=== PATIENT | female | born 1955 | race Caucasian/White ===

== ENCOUNTER 2024-04-04 17:55 | Inpatient (IN) | payer MEDICARE, MEDICAID ==
[~2024-04-04] VITALS: Ht 162.6 cm; Wt 82.1 kg
[2024-04-04 17:45] VITALS: BP 117/66; PULSE 85; RESP 18; TEMP 36.4; O2SAT 99
[~2024-04-04 17:55] MED LIST: ASPIRIN PO; BENA40TA91 PO; GABA800T97 PO; GLIP10TA17 PO; METF500T PO; PIOG45TA62 PO; SIMVASTATIN PO
[2024-04-04] MEDS ORDERED: IPRATROPIUM/ALBUTEROL 0.5-3(2.5)MG/3ML NEB NEB NR (18:26)
[2024-04-04 20:10] VITALS: BP 125/63; PULSE 114; RESP 18; TEMP 36.4; O2SAT 98
[2024-04-04] MEDS ORDERED: INSULIN LISPRO 100 UNITS/ML SUBCUT SCH (21:00)
[2024-04-04] MEDS: BLOOD SUGAR DIAGNOSTIC STRIP TEST SCH (21:00)
[2024-04-04] MEDS ORDERED: DEXTROSE 50% WATER 50ML SYRINGE IV PRN (21:15)
[2024-04-04] MEDS: GABAPENTIN 300MG CAPSULE PO SCH (21:56)
[2024-04-04] MEDS: FAMOTIDINE 20MG TABLET PO SCH (21:56)
[2024-04-04] MEDS: CARVEDILOL 3.125 MG TABLET PO SCH (21:59)
[2024-04-04] MEDS: DOXYCYCLINE 100MG/100ML 100 ML IV SCH (22:01)
[2024-04-04] MEDS: ATORVASTATIN CALCIUM 20MG TABLET PO SCH (22:02)
[2024-04-04] MEDS: INSULIN LISPRO 100 UNITS/ML SUBCUT SCH (22:26)
[2024-04-05] VITALS (8 sets, daily range): BP systolic 104–117; BP diastolic 46–71; PULSE 70–106; RESP 16–18; TEMP 35.4–36.5; O2SAT 94–97
[2024-04-05] MEDS: IPRATROPIUM/ALBUTEROL 0.5-3(2.5)MG/3ML NEB NEB SCH (05:03)
[2024-04-05] MEDS: BLOOD SUGAR DIAGNOSTIC STRIP TEST SCH (07:45)
[2024-04-05] MEDS: LORATADINE 10MG TABLET PO SCH (08:15)
[2024-04-05] MEDS: LOSARTAN 25 MG TABLET PO SCH (08:15)
[2024-04-05] MEDS: SERTRALINE HCL 25MG TABLET PO SCH (08:16)
[2024-04-05] MEDS: ENOXAPARIN 40MG/0.4ML SYR SUBCUT SCH (08:16)
[2024-04-05] MEDS: ASPIRIN 81MG TABLET PO SCH (08:16)
[2024-04-05] MEDS: PREDNISONE 20MG TABLET PO SCH (08:16)
[2024-04-05] MEDS: FUROSEMIDE 40MG/4ML VIAL IVP SCH (08:17)
[2024-04-05] MEDS: METHYLPREDNISOLONE SOD SUCC 40MG/ML (ACT-O-VIAL) IV SCH (08:17)
[2024-04-05] MEDS: NYSTATIN POWDER 15GM TOP SCH (09:00)
[2024-04-05] MEDS: CEFTRIAXONE 1GM/50ML 50 ML IV SCH (11:33)
[2024-04-05] MEDS: MONTELUKAST SODIUM 10MG TABLET PO SCH (17:09)
[2024-04-05 22:43] LABS: HEMOGLOBIN. 11.1 g/dL (12.0-16.0); LYMPHOCYTES % 14.4 % (20.0-50.0); MEAN CORPUSCULAR HEMOGLOBIN 29.1 pg (28.0-32.0); MEAN CORPUSCULAR HGB CONC 32.6 g/dL (31.0-37.0); MEAN CORPUSCULAR VOLUME 89.1 fL (81.0-99.0); MEAN PLATELET VOLUME 8.8 fl (7.4-10.4); MONOCYTES % 6.1 % (2.0-8.0); NEUTROPHILS % 79.5 % (40.0-76.0); PLATELET 250 x1000/uL (130-400); RED BLOOD CELL COUNT 3.82 mill/uL (4.2-5.4); RED CELL DISTRIBUTION WIDTH 13.9 % (11.6-14.6); WHITE BLOOD COUNT 9.7 x1000/uL (4.5-11.0)
[2024-04-05 22:50] LABS: CHLORIDE 102 mEq/L (98-107); POTASSIUM 3.5 mEq/L (3.5-5.1); SODIUM 137 mEq/L (136-145)
[2024-04-05 22:51] LABS: CALCIUM 9.2 mg/dL (8.7-10.4); CARBON DIOXIDE 22 mEq/L (21-32)
[2024-04-05 22:56] LABS: GLUCOSE 361 mg/dL (70-105); UREA NITROGEN BLOOD 38 mg/dL (9-23)
[2024-04-05 22:58] LABS: ALANINE AMINOTRANSFERASE 53 IU/L (10-49); ALBUMIN 3.5 g/dL (3.2-4.8); ASPARTATE AMINOTRANSFERASE 43 IU/L (<34); BILIRUBIN TOTAL 0.5 mg/dL (0.1-1.0)
[2024-04-06 03:12] VITALS: PULSE 76; RESP 22; O2SAT 97
[2024-04-06 08:00] VITALS: BP 127/66; PULSE 106; RESP 18; TEMP 35.9; O2SAT 99
[2024-04-06 10:31] VITALS: PULSE 70; RESP 20
[2024-04-06 15:13] VITALS: PULSE 74; RESP 18
[2024-04-06] MEDS: INSULIN LISPRO 100 UNITS/ML SUBCUT NR (17:56)
[2024-04-06 20:00] VITALS: BP 158/59; PULSE 90; TEMP 36.6; O2SAT 99
[2024-04-06 20:31] VITALS: PULSE 86; RESP 20; O2SAT 95
[2024-04-06] MEDS: ACETAMINOPHEN 325MG TABLET PO PRN (22:57)
[2024-04-06] MEDS: GUAIFENESIN 200MG/10ML SUGAR FREE UDC PO PRN (22:57)
[2024-04-07 03:50] VITALS: PULSE 83; RESP 20; O2SAT 96
[2024-04-07 08:00] VITALS: BP 106/60; PULSE 88; RESP 18; TEMP 36.2; O2SAT 100
[2024-04-07 08:03] VITALS: PULSE 76; RESP 18
[2024-04-07] MEDS: PREDNISONE 20MG TABLET PO SCH (08:44)
[2024-04-07 14:15] VITALS: PULSE 84; RESP 20; O2SAT 95
[2024-04-07 20:00] VITALS: BP 124/72; PULSE 86; RESP 18; TEMP 36.3; O2SAT 96
[2024-04-07 20:44] VITALS: PULSE 78; RESP 20; O2SAT 96
[2024-04-08 08:00] VITALS: BP 134/71; PULSE 70; RESP 18; TEMP 36.1; O2SAT 98
[2024-04-08 08:10] VITALS: PULSE 76; RESP 18; O2SAT 97
[2024-04-08] MEDS: FUROSEMIDE 40MG TABLET PO SCH (12:53)
[2024-04-08 14:55] VITALS: PULSE 70; RESP 18; O2SAT 98
[2024-04-08 20:00] VITALS: BP 128/59; PULSE 83; RESP 18; TEMP 36.9; O2SAT 98
[2024-04-08 20:45] VITALS: PULSE 77; RESP 22; O2SAT 97
[2024-04-09 07:56] VITALS: PULSE 65; RESP 20; O2SAT 98
[2024-04-09 08:00] VITALS: BP 135/54; PULSE 67; RESP 18; TEMP 35.8; O2SAT 98
[2024-04-09] MEDS: FUROSEMIDE 40MG TABLET PO SCH (08:49)
[2024-04-09 15:31] VITALS: PULSE 78; RESP 20
[2024-04-09 20:00] VITALS: BP 132/74; PULSE 68; RESP 18; TEMP 36.8; O2SAT 98
[2024-04-09 20:50] VITALS: PULSE 73; RESP 18; O2SAT 98
[2024-04-10 02:12] VITALS: PULSE 68; RESP 18; O2SAT 96
[2024-04-10 09:51] VITALS: BP 91/64; PULSE 79; RESP 18; TEMP 36.6; O2SAT 97
[2024-04-10] MEDS: PREDNISONE 10MG TABLET PO SCH (09:53)
[2024-04-10 20:00] VITALS: BP 128/62; PULSE 81; RESP 19; TEMP 36.3; O2SAT 81
[2024-04-11 08:00] VITALS: BP 100/56; PULSE 78; RESP 20; TEMP 36; O2SAT 98
[2024-04-11 19:35] VITALS: BP 141/58; PULSE 83; RESP 18; TEMP 36.2; O2SAT 97
[2024-04-11 22:34] LABS: BASOPHILS % 0.1 % (0.0-2.0); HEMATOCRIT. 33.1 % (36.0-48.0); HEMOGLOBIN. 10.9 g/dL (12.0-16.0); LYMPHOCYTES % 22.7 % (20.0-50.0); MEAN CORPUSCULAR HEMOGLOBIN 29.4 pg (28.0-32.0); MEAN CORPUSCULAR HGB CONC 33.1 g/dL (31.0-37.0); MEAN CORPUSCULAR VOLUME 89.1 fL (81.0-99.0); MEAN PLATELET VOLUME 9.6 fl (7.4-10.4); MONOCYTES % 5.5 % (2.0-8.0); NEUTROPHILS % 71.7 % (40.0-76.0); PLATELET 239 x1000/uL (130-400); RED BLOOD CELL COUNT 3.72 mill/uL (4.2-5.4); RED CELL DISTRIBUTION WIDTH 13.6 % (11.6-14.6); WHITE BLOOD COUNT 10.1 x1000/uL (4.5-11.0)
[2024-04-11 22:38] LABS: CARBON DIOXIDE 22 mEq/L (21-32); CHLORIDE 108 mEq/L (98-107); SODIUM 140 mEq/L (136-145)
[2024-04-11 22:40] LABS: CALCIUM 8.9 mg/dL (8.7-10.4)
[2024-04-11 22:44] LABS: CREATININE 0.9 mg/dL (0.6-1.0); GLUCOSE 206 mg/dL (70-105)
[2024-04-11 22:45] LABS: UREA NITROGEN BLOOD 26 mg/dL (9-23)
[2024-04-11 22:47] LABS: PHOSPHORUS 3.1 mg/dL (2.5-4.9)
[2024-04-12 08:00] VITALS: BP 121/64; PULSE 88; RESP 18; TEMP 35.7; TEMP 35.9; O2SAT 98
[2024-04-12 20:00] VITALS: BP 107/59; PULSE 69; RESP 18; TEMP 36.1; O2SAT 94
[2024-04-13 08:00] VITALS: BP 129/67; PULSE 70; PULSE 87; RESP 18; TEMP 35.6; TEMP 36.1; O2SAT 97
[2024-04-13] MEDS ORDERED: FAMO-135 MT (09:49)
[2024-04-13] MEDS ORDERED: MONT-46 MT (09:49)
[2024-04-13] MEDS ORDERED: FURO-152 MT (09:49)
[2024-04-13] MEDS ORDERED: SERT25TA74 MT (09:49)
[2024-04-13] MEDS ORDERED: LOSA25TA26 MT (09:49)
[2024-04-13] MEDS ORDERED: COR3 MT (09:49)
[2024-04-13] MEDS ORDERED: GABA-1180 MT (09:49)
[2024-04-13 10:07] VITALS: BP 129/67; PULSE 87; TEMP 97.8; O2SAT 97
== END 2024-04-13 13:45 | disposition home health service (06) | DRG 291 ==
PROVIDERS: ADMIT Psychiatry & Neurology Neurology; ATTEND Internal Medicine
DX: I11.0 Hypertensive heart disease with heart failure (principal); I50.33 Acute on chronic diastolic (congestive) heart failure; J96.01 Acute respiratory failure with hypoxia; N39.0 Urinary tract infection, site not specified; F33.1 Major depressive disorder, recurrent, moderate; E87.6 Hypokalemia; E11.40 Type 2 diabetes mellitus with diabetic neuropathy, unspecified; D64.9 Anemia, unspecified; L30.4 Erythema intertrigo; J45.909 Unspecified asthma, uncomplicated; Z79.4 Long term (current) use of insulin; Z79.82 Long term (current) use of aspirin; Z79.84 Long term (current) use of oral hypoglycemic drugs; Z79.899 Other long term (current) drug therapy; Z91.81 History of falling; E11.65 Type 2 diabetes mellitus with hyperglycemia; T38.0X5A Adverse effect of glucocorticoids and synthetic analogues, initial encounter; F41.9 Anxiety disorder, unspecified; R94.31 Abnormal electrocardiogram [ECG] [EKG]; M79.604 Pain in right leg; M79.605 Pain in left leg; Y92.89 Other specified places as the place of occurrence of the external cause; R05.9 Cough, unspecified; R07.9 Chest pain, unspecified
CPT/HCPCS: 36415; 80048; 80053; 82962; 83735; 84100; 85025; 93971; 94070; 94640; 94664; 94760; 97110; 97116; 97150; 97162; 97166; 97530; 97535; 98960; A4606; J0696; J1650; J1815; J1940; J2920; J3490; J7512